=== PATIENT | male | born 1985 | race Caucasian/White ===

== ENCOUNTER → 2024-02-20 15:49 | Outpatient (REF) | payer OTHER, SELFPAY | LOC: MRI 15:49 | PROVIDERS: ATTENDING PHYSICIAN Internal Medicine Gastroenterology; FAMILY PHYSICIAN Family Medicine | DX: K50.00 Crohn's disease of small intestine without complications (principal); Z87.19 Personal history of other diseases of the digestive system | CPT/HCPCS: 72197; 74183; A9575 ==

== ENCOUNTER 2024-04-24 06:05 | Inpatient (IN) | payer OTHER, SELFPAY ==
[2024-04-20 07:46] VITALS: BMI 29.5
[2024-04-20 10:42] LABS: Hematocrit 45.5 % (39.0-52.0); Hemoglobin 15.6 g/dL (13.0-18.0); Mean Corp Hgb Conc. 34.3 g/dL (33.0-37.0); Mean Corpuscular Hgb 28.1 pg (27.0-31.0); Mean Corpuscular Volume 81.8 fL (80.0-94.0); Mean Platelet Volume 11.1 fL (7.4-10.4); Platelet Count 226 10^3/uL (130-400); Red Blood Cell Count 5.56 10^6/uL (4.70-6.10); Red Cell Dist. Width 12.1 % (11.5-14.5); White Blood Cell Count 6.8 10^3/uL (4.8-10.8)
[2024-04-20 10:53] LABS: APTT 29.4 Sec (23.4-35.0); INR 0.98; PT 12.8 Sec (11.4-14.6)
[2024-04-20 11:09] LABS: ALT (SGPT) 27 U/L (0-50); AST (SGOT) 23 U/L (17-59); Albumin 4.4 g/dl (3.5-5.0); Alkaline Phosphatase 59 U/L (38-126); Blood Urea Nitrogen 16 mg/dl (9-20); Calcium 9.3 mg/dl (8.4-10.2); Carbon Dioxide 27 mmol/L (22-30); Chloride 100 mmol/L (98-107); Estimated Creatinine Clearance 109 ml/min; Glucose 84 mg/dl (70-99); Potassium 4.5 mmol/L (3.5-5.1); Sodium 142 mmol/L (135-145); Total Protein 6.7 g/dl (6.3-8.2); eGFR > 60.00
[2024-04-20 11:18] LABS: Total Bilirubin 1.2 mg/dl (0.2-1.3)
[2024-04-24] VITALS (14 sets, daily range): BP systolic 108–144; BP diastolic 64–101; BMI 29.5
[2024-04-24] MEDS: TYLENOL 1000 MG PO (06:37)
[2024-04-24] MEDS: ENTEREG 12 MG PO (06:37)
[2024-04-24] MEDS: HEPARIN 5000 UNITS SC (06:38)
[2024-04-24] MEDS: NORMOSOL-R/PLASMALYTE-A 1000 IV ×3 (06:39→19:40)
--- NOTE | 2024-04-24 10:50 | W.IMMPOSTOP ---
Surgical Immed Post Op Note
-
Primary Surgeon: Otto Santos MD
Assistants: YARITZA Howe & IVELISSE Titus
Pre-op Diagnosis: Chron's disease (terminal ileum)
Post-op Diagnosis: Same
Procedure Performed: Robotic ileocolectomy with isoperistaltic intracorporeal anastomosis
Resection of Meckel's diverticulum
Anesthesia Type: GET
Specimen / Cultures: Terminal ileum and cecum
Meckel's diverticulum (suture is distal)
Estimated Blood Loss: 15cc
Complications: None
Operative Findings: Severe stricturing/Crohn's disease of the terminal ileum
Meckel's diverticulum
Patient's and family updated in the waiting room.
[2024-04-24] MEDS: TORADOL IV (12:03)
[2024-04-24] MEDS: TYLENOL 650 MG PO ×3 (12:34→19:41)
--- NOTE | 2024-04-24 13:40 | PTCARENOTE ---
Pt arrived to 2S in bed. Full assessment completed. Abdominal incisions C/D/I, glued and LIDIA. Cast catheter clean and intact, draining yellow urine. IVF initiated, infusing per order. Pt educated on CLD, verbalized understanding. Bed locked and in
the lowest position, safety maintained. Oriented to room and call [place]. at bedside.
[2024-04-24] MEDS: TORADOL 15 MG IV (17:47)
[2024-04-25] MEDS: TORADOL 15 MG IV ×4 (00:05→17:48)
[2024-04-25] MEDS: TYLENOL 650 MG PO ×5 (00:07→21:36)
[2024-04-25 03:10] VITALS: BP 139/83
[2024-04-25] MEDS: TYLENOL PO (05:05)
[2024-04-25] MEDS: NORMOSOL-R/PLASMALYTE-A 1000 IV (05:19)
[2024-04-25 05:58] LABS: % Basophils 0.1 % (0-2); % Immature Granulocytes 0.2 % (0-0.5); % Lymphocytes 8.9 % (20.5-51.1); % Monocytes 7.1 % (1.7-9.3); % Neutrophils 83.7 % (42.2-75.2); Absolute Lymphocytes 1.1 10^3/uL (1.2-3.4); Absolute Monocytes 0.9 10^3/uL (0.1-0.6); Absolute Neutrophils 10.1 10^3/uL (1.4-6.5); Hematocrit 39.1 % (39.0-52.0); Hemoglobin 13.9 g/dL (13.0-18.0); Mean Corp Hgb Conc. 35.5 g/dL (33.0-37.0); Mean Corpuscular Hgb 28.4 pg (27.0-31.0); Mean Corpuscular Volume 79.8 fL (80.0-94.0); Mean Platelet Volume 10.4 fL (7.4-10.4); Nucleated Red Blood Cells % 0 % (-); Platelet Count 209 10^3/uL (130-400); Red Cell Dist. Width 12.1 % (11.5-14.5)
[2024-04-25 06:00] VITALS: BMI 29.5
[2024-04-25 06:22] LABS: Blood Urea Nitrogen 6 mg/dl (9-20); Calcium 9.1 mg/dl (8.4-10.2); Carbon Dioxide 26 mmol/L (22-30); Chloride 98 mmol/L (98-107); Estimated Creatinine Clearance 123 ml/min; Glucose 115 mg/dl (70-99); Potassium 4.1 mmol/L (3.5-5.1); Sodium 137 mmol/L (135-145); eGFR > 60.00
[2024-04-25 07:56] VITALS: BP 143/93
[2024-04-25] MEDS: ENTEREG 12 MG PO (08:45)
--- NOTE | 2024-04-25 11:07 | W.PN.CRS1 ---
Today's Communication / Plan
-
Low residue diet
Possible DC later today
Assessment/Plan
-
Postop day #1 ileocolic resection
-Vitals normal. WBC 12.0 as expected postop.
-Out of bed as tolerated.
-Start Lovenox for DVT prophylaxis. Teds and SCDs in place.
-Advance diet to low residue
-Discontinue Cast
-DC IV fluids when tolerating a diet
-Okay for discharge later today if feeling well. All discharge instruction discussed with patient including to the level, medications, and follow-up. All questions answered.
Subjective Data
Procedure
04/24 - Robotic ileocolectomy with isoperistaltic intracorporeal anastomosis
Resection of Meckel's diverticulum
Subjective Data
Date of Service: April 25, 2024
Patient states he feels well. His pain is controlled. He has flatus. He is having liquid bowel movements. He denies nausea or vomiting.
Objective Data
-
Vital Signs
Temp Pulse Resp BP Pulse Ox
97.9 F 85 16 143/93 97
04/25/24 07:56 04/25/24 07:56 04/25/24 07:56 04/25/24 07:56 04/25/24 07:56
Intake & Output
04/24/24 04/25/24 04/26/24
06:59 06:59 06:59
Intake Total 3740 / 3740
Output Total 1550 / 1550
Balance 2190 / 2190
Intake:
Oral fluids 1740 / 1740
IV fluids (Total) 1999 / 1999
Normosol 200 / 200
Output:
Urine, Cast 1550 / 1550
Lab Results
04/25/24 05:42
04/25/24 05:42
Physical Exam
-
General: No Acute Distress and AOx3
Abdomen: Soft, Non Distended and Non Tender
Skin: Warm and Dry
Incision: Clear, Dry, Intact
[2024-04-25 12:02] VITALS: BP 149/96
--- NOTE | 2024-04-25 12:15 | CM ---
Met with pt and at bedside
Pt reports he lives with his in a 3 story [facility]; 10 steps to enter, 10 steps to 2nd fl
Independent, works FT from home, drives
DME - none
SNF - denies past hx
HH - had infusion nurse - unable to recall agency
Has ride at discharge
PCP - Matheus Newell
Pharm - [facility]
Plan - anticipate home no needs
[2024-04-25 16:35] VITALS: BP 135/93
[2024-04-25] MEDS: LOVENOX 40 MG SC (17:49)
[2024-04-25] MEDS: NORMOSOL-R/PLASMALYTE-A IV (18:29)
[2024-04-25] MEDS: ENTEREG PO (20:26)
--- NOTE | 2024-04-25 21:00 | PTCARENOTE ---
Pt having multiple BM with urgency, has not been able to rest the last few hours without getting up every 15 min. Pt refusing Entereg this evening.
[2024-04-25 23:30] VITALS: BP 155/95
[2024-04-26] MEDS: TORADOL 15 MG IV ×3 (00:12→13:01)
[2024-04-26] MEDS: TYLENOL PO ×2 (04:09)
[2024-04-26 08:03] VITALS: BP 143/90
[2024-04-26] MEDS: TYLENOL 650 MG PO ×2 (08:32→13:01)
[2024-04-26] MEDS: ENTEREG PO (08:32)
--- NOTE | 2024-04-26 10:26 | W.PN.CRS1 ---
Today's Communication / Plan
-
Discharge
Assessment/Plan
-
Postop day # 2 ileocolic resection
-Vitals normal.
-Out of bed as tolerated.
-Start Lovenox for DVT prophylaxis. Teds and SCDs in place.
-Continue low residue diet
-Okay for discharge. All discharge instruction discussed with patient including to the level, medications, and follow-up. All questions answered.
Subjective Data
Procedure
04/24 - Robotic ileocolectomy with isoperistaltic intracorporeal anastomosis
Resection of Meckel's diverticulum
Subjective Data
Date of Service: April 26, 2024
Patient states he feels well. He denies nausea or vomiting. His pain is controlled. He has no complaints. He has loose stools.
Objective Data
-
Vital Signs
Temp Pulse Resp BP Pulse Ox
98.6 F 95 18 143/90 93
04/26/24 08:03 04/26/24 08:03 04/26/24 08:03 04/26/24 08:03 04/26/24 08:03
Intake & Output
04/25/24 04/26/24 04/27/24
06:59 06:59 06:59
Intake Total 3740 / 3740 2480 / 2480
Output Total 1550 / 1550 475 / 475
Balance 2190 / 2190 2004 / 2004
Intake:
Oral fluids 1740 / 1740 2480 / 2480
IV fluids (Total) 1999 / 1999
Normosol 200 / 200
Output:
Urine, Cast 1550 / 1550
Urine, Voided 475 / 475
Other:
Number of approximated MODERATE 2
amounts of urine
Number of unmeasured liquid
stools
Rectum 10
Lab Results
04/25/24 05:42
04/25/24 05:42
Physical Exam
-
General: No Acute Distress and AOx3
Abdomen: Soft, Non Distended and Non Tender
Skin: Warm and Dry
Incision: Clear, Dry, Intact
[2024-04-26 12:30] VITALS: BP 139/86
--- NOTE | 2024-04-26 12:51 | W.DS.TRANS ---
DC Summary - [facility]
-
Discharge Instructions:
Sleep Apnea Risk Low
Discharge Diagnosis/Procedures Robotic ileocolectomy with isoperistaltic
intracorporeal anastomosis
Resection of Meckel's diverticulum
Diet Low Residue
Activity No strenuous activity
Additional Activity No lifting over 10 pounds (gallon of milk)
Driving Restrictions No driving for 1 week
Bathing Restrictions OK to Shower
Wound Care Allow glue to naturally fall off. No picking at
incisions.
Instructions: Low Fiber Diet
Stand-Alone Forms:
Changes to Home Medications: Yes
Discharge Medications:
DC Medications w/original date entered in [employer]
adalimumab 40 mg/0.4 mL subcutaneous syringe kit 40 mg SC Q2W autoimmune disease 04/17/24
cholecalciferol (vitamin D3) 25 mcg (1,000 unit) capsule (Vitamin D3) 25 mcg PO DAILY 04/17/24
multivitamin 1 tab PO DAILY 04/17/24
oxycodone 5 mg tablet 5 mg PO Q6H PRN Pain #20 tabs 04/25/24
Home Medication Changes
oxycodone 5 mg tablet 5 mg PO Q6H PRN Pain #20 tabs 04/25/24
Pending Results: Yes
Additional Pending Results:
OR pathology
--- NOTE | 2024-04-26 13:25 | CM ---
Pt for discharge today
Has ride home with
Plan - home no needs
== END 2024-04-26 13:30 | disposition home or self-care (01) | DRG 331 ==
LOC: 2 SOUTH 06:05
PROVIDERS: ADMITTING PHYSICIAN Surgery; FAMILY PHYSICIAN Family Medicine
PROC: 0DTB4ZZ Resection of Ileum, Percutaneous Endoscopic Approach (ICD-10-PCS; 2024-04-24)
PROC: 8E0W4CZ Robotic Assisted Procedure of Trunk Region, Percutaneous Endoscopic Approach (ICD-10-PCS; 2024-04-24)
PROC: 0DBK4ZZ Excision of Ascending Colon, Percutaneous Endoscopic Approach (ICD-10-PCS; 2024-04-24)
DX: K50.012 Crohn's disease of small intestine with intestinal obstruction (principal); Q43.0 Meckel's diverticulum (displaced) (hypertrophic); Z79.620 Long term (current) use of immunosuppressive biologic
CPT/HCPCS: 88307; 36415; 80048; 80053; 83036; 85025; 85027; 85610; 85730; 86850; 86900; 86901; J1335